=== PATIENT | male | born 1960 | race Caucasian/White ===

== ENCOUNTER 2021-06-29 08:19 | Outpatient (CLI) | payer BC, SELFPAY ==
--- NOTE | ~2021-06-29 | US_ITS ---
EXAMINATION: US abdomen complete DATE: 06/29/2021 09:38 INDICATION: Other specified abnormal findings of blood chemistry. TECHNIQUE: Multiple grayscale and Doppler ultrasound images of the abdomen were obtained. COMPARISON: None FINDINGS: The visualized portions of the head, body, and tail of the pancreas are normal. There is di ffuse hepatic steatosis with focal sparing in the gallbladder fossa. There is normal flow in main por mark vein. The gallbladder is normal in size. No gallstones or gallbladder wall thickening. There was no sonographic Fernandes sign. The common duct is normal and measures 5 mm. The kidneys are normal in si ze. The spleen is normal in size. Inferior vena cava is normal. The abdominal aorta is normal in sabra cindy. IMPRESSION: 1. Diffuse hepatic steatosis. Reviewed, dictated and finalized at location B. [employer]
== END 2021-06-29 08:20 | disposition home or self-care (01) ==
LOC: ANHIMG 08:21
PROVIDERS: PCP Family Medicine; Visit Provider Physician Assistant Medical
DX: R79.89 Other specified abnormal findings of blood chemistry (principal); K76.0 Fatty (change of) liver, not elsewhere classified
CPT/HCPCS: 76700

== ENCOUNTER 2023-02-20 03:35 | Day surgery (SDC) | payer BC, SELFPAY ==
[2023-02-05 14:20] VITALS: BMI 31.6
--- NOTE | 2023-02-19 15:20 | P.PNAN_ITS ---
Anes - Initial Pre Proc Eval Procedure: Operation Date: 02/20/23 09:30 Proposed Procedures p Screening Colonoscopy - Zuhair Kruger MD Date/Time: 02/19/23 15:20 Surgeon: Zuhair Kruger MD Pre Op Diagnosis: neoplasm screening Patient Data Age: 62 Gender: M Height: 1.78 m Weight: 100 kg Allergies Allergy/AdvReac Type Severity Reaction Status Date / Time No Known Allergies Allergy Verified 02/20/23 07:53 Home Medications Medication Instructions Recorded Confirmed Type amlodipine 10 mg tablet See Rx Instructions .Route 08/02/22 02/20/23 Rx .COMPLEX #90 tabs allopurinol 100 mg tablet 100 mg PO DAILY #90 tabs 08/09/22 02/20/23 Rx nebivolol 10 mg tablet (Bystolic) See Rx Instructions .Route 11/22/22 02/20/23 Rx .COMPLEX #90 tabs valsartan 320 mg tablet See Rx Instructions .Route 11/22/22 02/20/23 Rx .COMPLEX #90 tabs finasteride 5 mg tablet (Proscar) 5 mg PO DAILY #90 tabs 12/07/22 02/20/23 Rx Patient hx anesthesia problems: none Family hx anesthesia problems: none Results Review: All pre-operative results and documents have been reviewed as part of the pre- operative evaluation. [facility] Past Medical History Medical History (Updated 02/19/23 @ 15:21 by Sid Everett DO) BMI 30.0-30.9,adult BMI 31.0-31.9,adult Elevated glucose Essential (primary) hypertension Idiopathic gout Family History Family History Father Hypertension Mother Diabetes mellitus Hypertension Anxiety Sibling Hypertension Other Cerebrovascular accident Family history of coronary artery disease Social History Social History Smoking status: Smoker, status unknown Second hand tobacco smoke exposure: Yes Alcohol intake: current Substance use: never Substance use type: does not use Lack of Transportation: No Lack of Food: Never True Current Housing: I Have Housing Concerned About Future Housing: No Difficulty Paying Gas/Electric Bills: No Difficulty Paying for Meds: No Currently Unemployed: No Education: High School Diploma/GED Difficulty w/ Childcare or Family Care: No Living arrangements: with family 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 Informed Consent: The patient's anesthetic plan and its attendant risks and benefits were discussed with the patient/family/POA. Questions were solicited and answers provided to the satisfaction of the patient/family/POA.
[2023-02-20 07:45] VITALS: BP 157/91; PULSE 56; RESP 18; TEMP 36.2; O2SAT 98; BMI 29.5
[2023-02-20] MEDS: LACTATED RINGERS 1,000 ML 150 ML IV CONT (08:07)
--- NOTE | 2023-02-20 08:45 | PM.HPGS ---
History of Present Illness History of Present Illness Consent: Risks, benefits, and alternatives have been discussed and questions answered. Patient agrees to proceed with procedure. Chief complaint: neoplasm screening Narrative: Seth Britton is a 62 year old male Presents for screening colonoscopy. Patient's current weight appetite and bowel movements are normal. Patient denies abdominal pain. He has had no bleeding. Family history noncontributory. Review of Systems Review of Systems: Review of systems noncontributory. [facility]LY [facility], [facility] Past Medical History Medical History (Updated 02/20/23 @ 08:47 by Zuhair Kruger MD) BMI 30.0-30.9,adult BMI 31.0-31.9,adult Elevated glucose Essential (primary) hypertension Idiopathic gout Family History Family History Father Hypertension Mother Diabetes mellitus Hypertension Anxiety Sibling Hypertension Other Cerebrovascular accident Family history of coronary artery disease Social History Social History Smoking status: Smoker, status unknown Second hand tobacco smoke exposure: Yes Alcohol intake: current Substance use: never Substance use type: does not use Lack of Transportation: No Lack of Food: Never True Current Housing: I Have Housing Concerned About Future Housing: No Difficulty Paying Gas/Electric Bills: No Difficulty Paying for Meds: No Currently Unemployed: No Education: High School Diploma/GED Difficulty w/ Childcare or Family Care: No Living arrangements: with family 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 Gender identity (if verbalized by the patient): Male Spiritual care concerns: No Meds Home Medications and Allergies Home Medications Medication Instructions Recorded Confirmed Type amlodipine 10 mg tablet See Rx Instructions .Route 08/02/22 02/20/23 Rx .COMPLEX #90 tabs allopurinol 100 mg tablet 100 mg PO DAILY #90 tabs 08/09/22 02/20/23 Rx nebivolol 10 mg tablet (Bystolic) See Rx Instructions .Route 11/22/22 02/20/23 Rx .COMPLEX #90 tabs valsartan 320 mg tablet See Rx Instructions .Route 11/22/22 02/20/23 Rx .COMPLEX #90 tabs finasteride 5 mg tablet (Proscar) 5 mg PO DAILY #90 tabs 12/07/22 02/20/23 Rx Allergies Allergy/AdvReac Type Severity Reaction Status Date / Time No Known Allergies Allergy Verified 02/20/23 07:53 Vital Signs Vital Signs - 24 hr 02/20/23 07:45 Temperature 97.2 F L Pulse Rate 56 L Respiratory Rate 18 Blood Pressure 157/91 H Pulse Oximetry 98 Oxygen Delivery Room Air Exam Narrative: Physical exam reveals patient to be alert. Vital signs stable. HEENT exam is unremarkable. Patient is anicteric. Lungs are clear to auscultation and percussion. Heart is without murmur or extra sounds. Abdomen bowel sounds are present soft nontender with no organomegaly. Digital external rectal exam is normal. Assessment and Plan Assessment and plan (1) Encounter for screening colonoscopy: Code(s): Z12.11 - Encounter for screening for malignant neoplasm of colon Status: Acute Assessment and Plan: Patient presents today for screening colonoscopy. He appears to be at average risk for colon polyps. Further recommendations may be given after endoscopy.
[2023-02-20 09:47] VITALS: BP 102/58; PULSE 65; RESP 26; O2SAT 94
[2023-02-20 09:57] VITALS: BP 130/86; PULSE 61; RESP 27; O2SAT 98
[2023-02-20 10:07] VITALS: BP 146/90; PULSE 63; RESP 20; O2SAT 97
== END 2023-02-20 10:18 | disposition home or self-care (01) ==
PROVIDERS: PCP Family Medicine; Visit Provider Internal Medicine Gastroenterology
PROC: 0DJD8ZZ Inspection of Lower Intestinal Tract, Via Natural or Artificial Opening Endoscopic (ICD-10-PCS; CPT 45378; principal; 2023-02-20 09:30)
DX: Z12.11 Encounter for screening for malignant neoplasm of colon (principal); K57.30 Diverticulosis of large intestine without perforation or abscess without bleeding; K64.8 Other hemorrhoids; K38.9 Disease of appendix, unspecified; I10 Essential (primary) hypertension; M10.00 Idiopathic gout, unspecified site; E66.9 Obesity, unspecified; Z68.29 Body mass index [BMI] 29.0-29.9, adult
CPT/HCPCS: 45378; J2704; J7120

== ENCOUNTER 2023-02-27 07:17 | Outpatient (CLI) | payer BC, SELFPAY ==
--- NOTE | ~2023-02-27 | CT_ITS ---
CT of the Abdomen and Pelvis: Indication: Appendix mass Technique: 2.5 mm axial scans were obtained through the abdomen and pelvis following intravenous adm inistration of 100 cc of Omnipaque 350. Dose reduction technique was used on this scan by utilizing a utomated exposure control and iterative reconstruction technique. The dose-length product (DLP) was 6 80.31 mGy-cm. Findings: Scans through the lung bases are unremarkable. Diffuse fatty infiltration of the liver noted The spleen, pancreas, gallbladder, adrenals and kidneys are within normal limits. There are atherosclerotic calcifications of the aorta. No lymphadenopathy . No bowel obstruction or bowel wall thickening. There is a densely calcified appendicolith at the dist al tip of the appendix, but the appendix is nondilated, now returning appreciable wall thickening or inflammatory change.. Images through the pelvis were performed. Urinary bladder unremarkable. Prostate gland is enlarged, a nd appears to indent to the bladder base. No ascites. Impression: Densely calcified appendicolith in the distal tip of the appendix. Diffuse fatty infiltration of liver. Enlarged prostate gland. Prostate neoplasm cannot be excluded based on this exam. Reviewed, dictated and finalized at location M. Impression: Densely calcified appendicolith in the distal tip of the appendix. Diffuse fatty infiltration of liver. Enlarged prostate gland. Prostate neoplasm cannot be excluded based on this exa Rebecca
[2023-02-27 07:53] LABS: Estimated Glomerular Filt Rate > 60
== END 2023-02-27 07:18 | disposition home or self-care (01) ==
PROVIDERS: PCP Family Medicine; Visit Provider Internal Medicine Gastroenterology
DX: K38.8 Other specified diseases of appendix (principal); K76.0 Fatty (change of) liver, not elsewhere classified; N40.0 Benign prostatic hyperplasia without lower urinary tract symptoms
CPT/HCPCS: 74177; Q9967

== ENCOUNTER 2023-03-16 07:41 | Outpatient (CLI) | payer BC, SELFPAY ==
--- NOTE | 2023-03-16 07:56 | ECG_ITS ---
Measurements Intervals [place] Rate: 58 P: 51 AL: 183 QRS: 7 QRSD: 93 T: 29 QT: 433 QTc: 427 Interpretive Statements SINUS BRADYCARDIA DELAYED PRECORDIAL R/S TRANSITION INFERIOR INFARCT, AGE INDETERMINATE BORDERLINE T WAVE ABNORMALITY- ANTERIOR LEADS ABNORMAL ECG NO PREVIOUS ECG AVAILABLE FOR COMPARISON Electronically Signed On 03-16-2023 8:15:47 CDT by Humberto Polo D.O.
== END 2023-03-16 07:42 | disposition home or self-care (01) ==
LOC: ANHSURGERY 07:44
PROVIDERS: PCP Family Medicine; Visit Provider Surgery
DX: I10 Essential (primary) hypertension (principal); Z01.818 Encounter for other preprocedural examination; R94.31 Abnormal electrocardiogram [ECG] [EKG]
CPT/HCPCS: 93005

== ENCOUNTER 2023-03-21 01:14 | Day surgery (SDC) | payer BC, SELFPAY ==
[2023-03-13 13:55] VITALS: BMI 29.5
--- NOTE | 2023-03-13 14:08 | SUR.PREOP ---
Report to the Outpatient Waiting Room, entrance under the green pavilion located off [facility], at time 1000 on date 03/21/23. Planned Procedure Time: 1200. Time changes happen often and if your time is changed the preop area will call you the afternoon before. - You and your visitor will be asked to self-screen and do not enter if you have any COVID symptoms. - A mask is optional within the hospital at this time. Patients may have clear liquids (water, carbonated beverages, clear teas, apple juice) until 3 hours prior to surgery with a maximum of 20 ounces. - No food from midnight until time of surgery Take the following medications with a SIP of water the morning of surgery: BYSTOLIC DO NOT STOP ANY OF YOUR OTHER PRESCRIPTION MEDICATIONS PRIOR TO SURGERY ?EXCEPT THE FOLLOWING Medications to discontinue per physician STOP ALL VITAMINS ANS SUPPLIMENTS 3 DAYS PRIOR Date to take last dose Sunday03/17/23 Please no make-up, nail kyrgyz, hairspray, perfume, deodorant, or body powder the day of surgery. No jewelry (including any body piercings) or valuables the day of surgery, leave them at home. Please take a shower or bath the night before, or the morning of, surgery with an antibacterial soap. Wear comfortable, loose fitting clothing. Children are encouraged to wear pajamas. - Jewelry must be removed prior to entering the operating room. Rings and piercings that are not removed may be cut off. - The hospital will not accept responsibility for valuables. - Please leave all valuables, including medications, at home the day of surgery. If you are going home after surgery, a licensed trailer driver must drive you home. - NO public transportation without another adult if you receive anesthesia. - We recommend that an adult stay with you for 24 hours following discharge. - We also recommend that you do not drive, make important decision, drink alcoholic beverages, or take any drugs that were not prescribed by your health care provider for at least 24 hours after your discharge time. Follow any additional instructions given to you from your surgeon. If you or anyone in your household have experienced Covid symptoms in the past week, please notify your surgeon or the nurse liaison at the phone number below for possible testing. Telephone instructions given to JUAN JOSÉ LEVINE and asked if any additional questions and then verbalized understanding. Patient advised to call surgeon office or pre surgery nurse liaison [phone] if any additional questions.
[2023-03-21] VITALS (8 sets, daily range): BP systolic 138–158; BP diastolic 75–87; PULSE 50–63; RESP 12–18; TEMP 36.2–36.5; O2SAT 93–100
[2023-03-21] MEDS: KETOROLAC 15 MG/ML VIAL (*BKC) IV PUSH (11:00)
[2023-03-21] MEDS: LACTATED RINGERS 1,000 ML 30 ML IV CONT ×2 (11:00→12:52)
--- NOTE | 2023-03-21 11:01 | WPDHPUPDATE1 ---
History and Physical Update Update Date/Time: 03/21/23 11:01 History and Physical has been reviewed, including an updated exam of the patient. There are NO changes in the patient's condition. Risks, benefits, and alternatives have been discussed and questions answered. Patient agrees to proceed with procedure.
--- NOTE | 2023-03-21 11:13 | WPDANESEPPF ---
Anes - Initial Pre Proc Eval Procedure: Operation Date: 03/21/23 12:00 Proposed Procedures p Laparoscopic Appendectomy - Anna Woodson MD Date/Time: 03/21/23 11:13 Surgeon: Anna Woodson MD Pre Op Diagnosis: appendiceal mass Patient Data Age: 63 Gender: M Height: 1.78 m Weight: 93.44 kg Allergies Allergy/AdvReac Type Severity Reaction Status Date / Time No Known Allergies Allergy Verified 03/13/23 13:50 Home Medications Medication Instructions Recorded Confirmed Type allopurinol 100 mg tablet 100 mg PO DAILY #90 tabs 02/20/23 03/13/23 Rx amlodipine 10 mg tablet See Rx Instructions .Route 02/20/23 03/13/23 Rx .COMPLEX #90 tabs finasteride 5 mg tablet (Proscar) 5 mg PO DAILY #90 tabs 02/20/23 03/13/23 Rx nebivolol 10 mg tablet (Bystolic) See Rx Instructions .Route 02/20/23 03/13/23 Rx .COMPLEX #90 tabs valsartan 320 mg tablet See Rx Instructions .Route 02/20/23 03/13/23 Rx .COMPLEX #90 tabs dutasteride 0.5 mg capsule 0.5 mg PO DAILY #30 caps 03/13/23 Rx (Avodart) vitamin N80-duodx acid 1 cap PO DAILY 03/13/23 03/13/23 History Patient hx anesthesia problems: none Family hx anesthesia problems: none Results Review: All pre-operative results and documents have been reviewed as part of the pre-operative evaluation. [facility] Past Medical History Medical History BMI 30.0-30.9,adult BMI 31.0-31.9,adult Elevated glucose Essential (primary) hypertension Idiopathic gout Surgical History Surgical History Fracture pt was age 12 for surgery to repair fracture in L arm Family History Family History Father Hypertension Mother Diabetes mellitus Hypertension Anxiety Sibling Hypertension Other Cerebrovascular accident Family history of coronary artery disease Social History Social History (Reviewed 03/02/23 @ 08:54 by ANTONIO Robin Smoking status: Never smoker Second hand tobacco smoke exposure: Yes Alcohol intake: current Substance use: never Substance use type: does not use Lack of Transportation: No Lack of Food: Never True Current Housing: I Have Housing Concerned About Future Housing: No Difficulty Paying Gas/Electric Bills: No Difficulty Paying for Meds: No Currently Unemployed: No Education: High School Diploma/GED Difficulty w/ Childcare or Family Care: No Living arrangements: alone 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, 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 Informed Consent: The patient's anesthetic plan and its attendant risks and benefits were discussed with the patient/family/POA. Questions were solicited and answers provided to the satisfaction of the patient/family/POA.
[2023-03-21] MEDS: BUPIVACAINE/EPINEPHRINE 0.5% 30 ML VIAL INFILTRATE (11:51)
[2023-03-21] MEDS: ceFAZolin 2 GM/D5W 50 ML 2 GM/50 ML BAG IVPB (11:51)
--- NOTE | 2023-03-21 12:42 | P.OP_ITS ---
Procedure Note - Detailed Date of Procedure 03/21/23 Pre-op Diagnosis appendiceal mass Post-op Diagnosis Same Procedure Performed laparoscopic appendectomy Surgeon Anna Woodson MD Anesthesia General Indications 63-year-old male presenting with appendiceal mass suggested on colonoscopy. Subsequent CT scan was suggestive of likely appendicolith. Findings Prominent appendix with noted prominence in the mid section of the appendix Description of Procedure The patient was taken to the operating room and placed in the supine position. After adequate induction of general anesthesia, the patient was prepped and draped in the normal sterile fashion. A time-out was then done to verify the patient's identity, as well as the procedure being performed. I began by making a 5 mm incision in the infraumbilical region, through this a Veress needle was placed in the peritoneal cavity. CO2 gas was then insufflated and after adequate pneumoperitoneum was achieved the Veress needle was removed. Then placed a 5 mm Optiview trocar under direct visualization into the peritoneal cavity. I then insufflated through this trocar site and the endoscope was placed into the trocar. Under direct visualization, placed 2 further 5 mm suprapubic port as well as an additional 12 mm port in the left lower abdomen. At this point identified the cecum, I retracted the cecum both medially and superiorly allowing me to expose the appendix. The appendix was noted to be prominent and injected with a hard mass near the body. I then was able to locate the base of the appendix with the cecum. I created a window with the [place] dissector between the appendix itself and the mesoappendix. I then transected the mesoappendix with a white vascular staple load. The Endo-MARE was then reloaded with a blue staple load and I transected the base of the appendix. Once the specimen was completely detached, an endo-pouch was placed into the 12 mm port site and the specimen was removed through the endo-pouch. The appendi ceal specimen will be sent to pathology for further review. I then copiously irrigated the right lower quadrant. Hemostasis was noted at both staple lines no other pathology was seen in this area. I then moved the camera to the suprapubic port to check our its port of entry. No iatrogenic injury or other pathology was noted in the upper abdomen. I then closed the 12 mm port site with a Graham code and 0 Vicryl suture under direct visualization. At this point, the abdomen was desufflated and all ports were removed. All port sites were closed with 4 Monocryl subcuticular suture. Dermabond was placed on all wounds. The patient tolerated the procedure well and was extubated in the operating room postop. He will be sent to the recovery room in stable condition. Estimated Blood Loss 10 Drains No Packing No Pathology Yes Complications No immediate complications Condition Stable Disposition PACU [facility] Billing Surgery - Charge Forward: Surgery Billing
[2023-03-21] MEDS: oxyCODONE HCL (*CRX) 5 MG TAB IR PO (14:49)
== END 2023-03-21 15:03 | disposition home or self-care (01) ==
PROVIDERS: PCP Family Medicine; Visit Provider Surgery
PROC: 0DTJ4ZZ Resection of Appendix, Percutaneous Endoscopic Approach (ICD-10-PCS; CPT 44970; principal; 2023-03-21 12:00)
DX: K38.8 Other specified diseases of appendix (principal); I10 Essential (primary) hypertension; M10.00 Idiopathic gout, unspecified site; E66.9 Obesity, unspecified; Z68.28 Body mass index [BMI] 28.0-28.9, adult
CPT/HCPCS: 44970; 88304; A9270; J0690; J1100; J1885; J2250; J2405; J2704; J3010; J7030; J7120